=== PATIENT | female | born 1965 | race African-American/Black ===

== ENCOUNTER 2017-05-25 04:20 | Emergency (ER) | payer OTHER ==
[~2017-05-25] VITALS: Ht 157.5 cm; Wt 75.0 kg
[~2017-05-25 04:20] MED LIST: ALPR1TAB2; IBUP-1008; VIC; [UNRECOGNIZED DRUG - CODE]
[2017-05-25 05:36] LABS: CLARITY URINE CLEAR (CLEAR); COLOR URINE YELLOW (YELLOW); GLUCOSE URINE NEGATIVE (NEGATIVE); KETONES URINE NEGATIVE (NEGATIVE); LEUKOCYTE ESTERASE URINE 2+ (NEGATIVE); NITRITE URINE NEGATIVE (NEGATIVE); OCCULT BLOOD URINE NEGATIVE (NEGATIVE); PH URINE 5.5 (4.5-8.0); PROTEIN URINE NEGATIVE (NEGATIVE); SPECIFIC GRAVITY URINE 1.019 (1.005-1.030); UROBILINOGEN URINE 0.2 E.U./dL (0.2-1.0)
[2017-05-25] MEDS ORDERED: AZITHROMYCIN 500 MG TABLET PO ONE (06:30)
[2017-05-25] MEDS ORDERED: LIDOCAINE HCL 1% 20ML VIAL (Pyxis) INJ MC ONE (06:30)
[2017-05-25] MEDS ORDERED: CEFTRIAXONE SODIUM 250 MG/VIAL IM ONE (06:30)
[2017-05-25 08:39] VITALS: BP 100/56
== END 2017-05-25 08:40 | disposition home or self-care (01) ==
LOC: ER 04:21
DX: N39.0 Urinary tract infection, site not specified (principal); Z72.0 Tobacco use; E78.00 Pure hypercholesterolemia, unspecified
CPT/HCPCS: 81001; 81025; 87210; 87491; 87591; 96372; 99284; J0696; J3490; Z7610

== ENCOUNTER 2017-07-17 09:40 | Emergency (ER) | payer OTHER ==
[~2017-07-17 09:40] MED LIST changes: +ACYC400T5; -[UNRECOGNIZED DRUG - CODE]
[2017-07-17] MEDS ORDERED: KETOROLAC 30MG/ML VIAL IM ONE (10:45)
[2017-07-17 10:48] VITALS: BP 124/64
[2017-07-17 11:32] LABS: CLARITY URINE CLEAR (CLEAR); COLOR URINE YELLOW (YELLOW); GLUCOSE URINE NEGATIVE (NEGATIVE); KETONES URINE NEGATIVE (NEGATIVE); LEUKOCYTE ESTERASE URINE 2+ (NEGATIVE); NITRITE URINE NEGATIVE (NEGATIVE); OCCULT BLOOD URINE NEGATIVE (NEGATIVE); PH URINE 5.5 (4.5-8.0); PROTEIN URINE NEGATIVE (NEGATIVE); UROBILINOGEN URINE 0.2 E.U./dL (0.2-1.0)
== END 2017-07-17 12:32 | disposition home or self-care (01) ==
LOC: ER 11:01
DX: N39.0 Urinary tract infection, site not specified (principal); F41.9 Anxiety disorder, unspecified; E78.00 Pure hypercholesterolemia, unspecified
CPT/HCPCS: 81001; 81025; 96372; 99283; J1885

== ENCOUNTER 2017-09-12 12:20 | Emergency (ER) | payer OTHER ==
[~2017-09-12] VITALS: Ht 154.9 cm; Wt 77.0 kg
[2017-09-12 13:09] LABS: CLARITY URINE CLEAR (CLEAR); COLOR URINE YELLOW (YELLOW); GLUCOSE URINE NEGATIVE (NEGATIVE); KETONES URINE NEGATIVE (NEGATIVE); LEUKOCYTE ESTERASE URINE NEGATIVE (NEGATIVE); NITRITE URINE NEGATIVE (NEGATIVE); OCCULT BLOOD URINE NEGATIVE (NEGATIVE); PROTEIN URINE NEGATIVE (NEGATIVE); SPECIFIC GRAVITY URINE 1.007 (1.005-1.030); UROBILINOGEN URINE 0.2 E.U./dL (0.2-1.0)
[2017-09-12 13:30] VITALS: BP 130/65
== END 2017-09-12 15:22 | disposition left against medical advice (07) ==
LOC: ER 14:21
DX: N94.10 Unspecified dyspareunia (principal); R35.0 Frequency of micturition; R10.2 Pelvic and perineal pain
CPT/HCPCS: 81003; 81025; 99283; 99284

== ENCOUNTER 2022-03-02 16:48 | Emergency (ER) | payer BC, MEDICAID ==
[~2022-03-02] VITALS: Ht 154.9 cm; Wt 68.0 kg
[2022-03-02] MEDS ORDERED: IBUPROFEN 600MG TABLET PO ONE (18:45)
[2022-03-02] MEDS ORDERED: HYDROCODONE/ACETAMINOPHEN 10/325MG TABLET PO ONE (18:45)
[2022-03-02] MEDS ORDERED: IBUP-2030 MT (19:44)
[2022-03-02] MEDS ORDERED: CYCL10TA7 MT (19:44)
[2022-03-02 20:48] VITALS: BP 121/67
== END 2022-03-02 20:49 | disposition home or self-care (01) ==
LOC: ER 16:48
DX: S39.012A Strain of muscle, fascia and tendon of lower back, initial encounter (principal); S16.1XXA Strain of muscle, fascia and tendon at neck level, initial encounter; S63.591A Other specified sprain of right wrist, initial encounter; V49.49XA Driver injured in collision with other motor vehicles in traffic accident, initial encounter; Y93.89 Activity, other specified; Y92.488 Other paved roadways as the place of occurrence of the external cause
CPT/HCPCS: 72110; 73110; 99284

== ENCOUNTER 2022-07-27 04:36 | Emergency (ER) | payer BC, MEDICAID ==
[~2022-07-27] VITALS: Ht 157.5 cm; Wt 68.0 kg
[~2022-07-27 04:36] MED LIST changes: +CYCL10TA21 MT; +IBUP-2030 MT
[2022-07-27 05:02] VITALS: BP 132/86
[2022-07-27] MEDS ORDERED: AMOX1TAB16 PO (05:45)
[2022-07-27] MEDS ORDERED: ERYT1OIN6 LEFTEYE (05:45)
[2022-07-27] MEDS ORDERED: ACETAMINOPHEN 325MG TABLET PO ONE (06:00)
== END 2022-07-27 06:10 | disposition home or self-care (01) ==
LOC: ER 04:36
DX: L03.213 Periorbital cellulitis (principal); H00.14 Chalazion left upper eyelid
CPT/HCPCS: 99282; 99283

== ENCOUNTER 2024-08-04 20:59 | Emergency (ER) | payer BC, OTHER ==
[~2024-08-04] VITALS: Ht 167.6 cm; Wt 82.0 kg
[~2024-08-04 20:59] MED LIST changes: +AMOX1TAB16 PO; +ERYT1OIN6 LEFTEYE
[2024-08-04 21:18] VITALS: O2SAT 100
[2024-08-04] MEDS ORDERED: KETOROLAC 15MG/ML VIAL IM ONE (22:00)
[2024-08-05] MEDS ORDERED: LIDO700A15 TP (00:08)
[2024-08-05] MEDS ORDERED: NAPR-1176 MT (00:08)
[2024-08-05] MEDS: LIDOCAINE 5% PATCH TOP SCH (00:11)
[2024-08-05] MEDS: CYCLOBENZAPRINE 10MG TABLET PO ONE (00:12)
[2024-08-05 00:14] VITALS: TEMP 36.94740; O2SAT 99
[2024-08-05 00:15] VITALS: BP 128/82; PULSE 81; RESP 17
[2024-08-05] MEDS: KETOROLAC 15MG/ML VIAL IM NR (00:15)
== END 2024-08-05 00:25 | disposition home or self-care (01) ==
LOC: ER 20:59
DX: M54.50 Low back pain, unspecified (principal); J45.909 Unspecified asthma, uncomplicated; E11.9 Type 2 diabetes mellitus without complications; E78.00 Pure hypercholesterolemia, unspecified; Z90.710 Acquired absence of both cervix and uterus; Z79.899 Other long term (current) drug therapy
CPT/HCPCS: 99283; 96372; J1885; Z7610

== ENCOUNTER 2025-07-17 15:46 | Emergency (ER) | payer BC ==
[~2025-07-17] VITALS: Ht 167.6 cm; Wt 70.0 kg
[~2025-07-17 15:46] MED LIST changes: +LIDO-53 TP; +NAPR-1176 MT
[2025-07-17 15:57] VITALS: O2SAT 100
[2025-07-17] MEDS: DEXAMETHASONE 10 MG/ML VIAL IM ONE (18:47)
[2025-07-17] MEDS: KETOROLAC 30MG/ML VIAL IM ONE (18:48)
[2025-07-17 19:50] VITALS: BP 109/61; PULSE 64; RESP 16; TEMP 37.1; O2SAT 98
[2025-07-17] MEDS ORDERED: NAPR-681 MT (19:55)
[2025-07-17] MEDS ORDERED: CAPS42.514 TP (19:55)
[2025-07-17] MEDS ORDERED: LIDO-53 TP (19:55)
[2025-07-17] MEDS ORDERED: METH4TAB95 MT (19:55)
== END 2025-07-17 20:39 | disposition home or self-care (01) ==
LOC: ER 15:46
DX: M54.30 Sciatica, unspecified side (principal); E11.9 Type 2 diabetes mellitus without complications; E78.00 Pure hypercholesterolemia, unspecified; J45.909 Unspecified asthma, uncomplicated; Z90.710 Acquired absence of both cervix and uterus; Z90.79 Acquired absence of other genital organ(s)
CPT/HCPCS: 74176; 96372; 99285; J1100; J1885; Z7610